=== PATIENT | male | born 1980 | race Caucasian/White ===

== ENCOUNTER 2023-09-04 19:16 | Emergency (ER) | payer BC, SELFPAY ==
[2023-09-04 19:23] VITALS: BP 131/89; PULSE 86; RESP 16; TEMP 36.5; O2SAT 98
[2023-09-04 20:13] LABS: Appearance Urine Clear (Clear); Bilirubin Urine Negative (Negative); Blood Urine Negative (Negative); Color Urine Yellow (Yellow); Glucose Urine Negative (Negative); Ketones Urine Negative (Negative); Leukocyte Esterase Urine Negative (Negative); Nitrite Urine Positive (Negative); Protein Urine Negative (Negative); Specific Gravity Urine 1.025 (1.000-1.030)
[2023-09-04 20:26] LABS: Bacteria Urine Few
--- NOTE | 2023-09-04 20:36 | CRLHL7_ITS ---
For Patients: As a result of the Century Cures Act, medical imaging exams and procedure reports are released immediately into your electronic medical record. You may view this report before your referring provider. If you have questions, please contact your health care provider. INDICATION: Flank pain. TECHNIQUE: Multiplanar CT examination of the abdomen and pelvis was performed without the use of intravenous contrast, stone pagan protocol. COMPARISON: None. FINDINGS: Lower Chest: Linear bandlike opacifications of the lung bases likely due to subsegmental atelectasis and/or scarring. No focal consolidation. Normal heart size. No pleural effusions or pneumothorax. Liver: Normal. Gallbladder: Normal. Biliary: No biliary ductal dilitation. Pancreas: Normal. Spleen: Normal. Adrenal Glands: Normal. Kidneys: Limited evaluation of the kidneys without the use of intravenous contrast. No obstructive urinary calculus. No hydronephrosis. No suspicious renal masses. Ureters: Normal. No hydroureter. Urinary Bladder: Normal. Bowel: No obstruction or bowel wall thickening. The appendix is normal. Pelvic organs: Enlarged prostate. Peritoneum: No ascites or pneumoperitoneum. Vessels: Normal. Lymph Nodes: No lymphadenopathy. Abdominal Wall/Soft Tissues: Unremarkable. Bones: Status post posterior fusion and decompressive laminectomies of L4-S1. Intervertebral disc spacer at L4-5. No acute osseous abnormalities. IMPRESSION: Limited evaluation of the kidneys without the use of intravenous contrast. 1. No obstructive calculus or hydronephrosis. The etiology of the patient`s flank pain is not elucidated on this examination. Please note that all CT scans at this facility use dose modulation, iterative reconstruction, and/or weight-based dosing when appropriate to reduce radiation dose to as low as reasonably achievable. Dictated by Yovany Vidal MD @ 09/04/2023 9:17:40 PM (Electronically Signed)
--- NOTE | 2023-09-04 20:48 | ED.GENADULT ---
HPI - General Adult General Date Seen: 09/04/23 Chief complaint: Flank Pain Stated complaint: Possible kidney stone-R Time Seen by Provider: 09/04/23 20:34 History of Present Illness HPI narrative: This is a very pleasant 43-year-old gentleman presenting to the ER [facility] with his for evaluation of acute onset right flank pain that began this evening. He has a past medical history notable for a kidney stone that passed spontaneously about 20 years ago. Also history of migraine headaches, some chronic low back pain, previous back surgery, degenerative disc disease. He had his live in [place]. They have traveled here to [place] for work. He was working in [place] today [place]. They had. For dinner in [facility] when he had abrupt onset of right flank pain. He did note a little bit of burning with urination earlier this evening but he thought that was probably just because he was dehydrated and had not had anything to drink all day long. No other recent dysuria, hematuria, urgency, frequency, or other urinary symptoms. Initially he had his thought he might have just pulled a muscle from working hard today in his back. However the pain became quite intense and made him double over his table and made him diaphoretic and sweaty. The pain has gotten better now and is now at a tolerable level but is still in his right flank. It does not radiate around to the right upper quadrant, right lower quadrant or down to his groin. The pain does not radiate to the midline of his back. No leg symptoms. No fevers or chills. He was nauseous during the severe pain but no vomiting. Related Data Home Medications Medication Instructions Recorded Confirmed No Known Home Medications 09/04/23 09/04/23 Allergies Allergy/AdvReac Type Severity Reaction Status Date / Time codeine Allergy Severe Rash Verified 09/04/23 19:29 Sulfa (Sulfonamide Allergy Intermediate Rash Verified 09/04/23 19:29 Antibiotics) [facility] Social History Smoking Status: Current every day smoker What tobacco products do you use: cigarettes How often do you have a drink containing alcohol: monthly or less How often do you have six or more drinks on one occasion: Never AUDIT-C Alcohol total score: 1 Non-prescribed substance use: denies use Exam Narrative: Exam Narrative: Constitutional: Appears well-developed and well-nourished. Alert. Conversant. Non toxic. HENT: Head: Atraumatic. Nose: Nose normal. Mouth/Throat: Oral mucosa is clear and moist. no trismus. Pharynx normal. Tonsils symmetric. No tonsillar enlargement, erythema, or exudate. Eyes: Conjunctivae normal. EOM normal. Pupils equal, round, and reactive to light. No scleral icterus. Neck: Normal range of motion. Neck supple. No tracheal deviation present. Cardiovascular: Normal rate, regular rhythm. No gallop. No friction rub. No murmur heard. Symmetric radial artery pulses Pulmonary/Chest: Effort normal. No stridor. No respiratory distress. No wheezes. No rales. No rhonchi . No tenderness. Abdominal: Soft. Bowel sounds normal. No distension. No mass. Right CVA tenderness. No RUQ, LUQ tenderness. No rebound. No guarding. Musculoskeletal: Healed midline lumbar incision. No midline tenderness or step-off. Right CVA tenderness. RUE: Normal range of motion. No tenderness. No deformity LUE: Normal range of motion. No tenderness. No deformity RLE: Normal range of motion. No edema. No tenderness. No deformity LLE: Normal range of motion. No edema. No tenderness. No deformity Neurological: Alert and oriented to person, place, and time. Normal strength. CN II-VII intact. No sensory deficit. GCS eye subscore is 4. GCS verbal subscore is 5. GCS motor subscore is 6. Normal coordination Skin: Skin is warm and dry. No rash noted. No pallor. Normal capillary refill. Psychiatric: Normal mood. Normal affect. Const: Vital Signs, click to edit/add: Vital Signs - 24 hr 09/04/23 19:23 09/04/23 22:00 Temperature 97.7 F Pulse Rate [Left P ulse Oximeter] 86 88 Respiratory Rate 16 Blood Pressure [Ri ght Upper Arm] 131/89 116/79 Pulse Oximetry 98 98 Oxygen Delivery Me thod Room Air Room Air Course Course ED Course: Recheck-sleeping in bed. Arouses when I shake his shoulder. Discussed test results. had gone to the bathroom. Recheck-still doing well. back. Discussed test results with the patient and his . Vital Signs Vital signs: Initial Vital Signs Temperature 97.7 F 09/04/23 19:23 Temperature Source Temporal Artery Scan 09/04/23 19:23 Pulse Rate 86 09/04/23 19:23 Pulse Rhythm Regular 09/04/23 19:23 Respiratory Rate 16 09/04/23 19:23 Blood Pressure 131/89 09/04/23 19:23 Blood Pressure Mean 103 09/04/23 19:23 Blood Pressure Position Sitting 09/04/23 19:23 Pulse Oximetry 98 09/04/23 19:23 Oxygen Delivery Method Room Air 09/04/23 19:23 Vital Signs Temperature 97.7 F 09/04/23 19:23 Pulse Rate 86 09/04/23 19:23 Respiratory Rate 16 09/04/23 19:23 Blood Pressure 131/89 09/04/23 19:23 Pulse Oximetry 98 09/04/23 19:23 Oxygen Delivery Method Room Air 09/04/23 19:23 Temperature 97.7 F 09/04/23 19:23 Pulse Rate 88 09/04/23 22:00 Respiratory Rate 16 09/04/23 19:23 Blood Pressure 116/79 09/04/23 22:00 Pulse Oximetry 98 09/04/23 22:00 Oxygen Delivery Method Room Air 09/04/23 22:00 Medications Administered Medications: Discontinued Medications Generic Name Dose Route Start Last Admin Trade Name rPadipq PRN Reason Stop Dose Admin Ondansetron HCl 4 mg 09/04/23 21:10 09/04/23 21:33 Ondansetron 2 Mg/Ml Inj IVP 09/04/23 21:11 4 mg ONCE ONE Administration Medical Decision Making MDM Narrative Medical decision making narrative: This is a 43-year-old male with a history of migraine headaches, and a distant history of 1 previous kidney stone presenting to the ER today with abrupt onset of severe right flank pain that doubled him over while he was at dinner this evening, prompting his visit here to the ER. He is traveling here to [place] for work and is currently in the process of traveling home to [place] with his . Differential 1st right flank pain included kidney stone, pyelonephritis, liver disease, gallbladder, unusual appendicitis, musculoskeletal pain, shingles, retroperitoneal hematoma, AAA, among others. Initial concern was for possible kidney stone. Urinalysis did come back with scant hematuria. Also positive nitrite but no pyuria. Stone protocol CT was obtained and is fortunately negative for any hydronephrosis, obstructing stone, or other abnormality. Laboratory workup is reassuring. Normal white blood cell count, hemoglobin, platelet count. Normal electrolytes, kidney function. Lactic acid normal. LFTs and lipase are normal. Patient sprain head largely resolved before he came to the ER and remain well controlled. He was able to fall asleep. He did not receive any pain meds while here in the ER. He does have some mild ongoing flank pain. At this point, with essentially resolved pain, I think it is reasonable to monitor the patient in outpatient setting. He is actually planning to travel back toward [place]. Therefore will provide him with copies of his labs and CT so that if he has recurrent pain in knees re-evaluation he will be able to bring his workup results with him. With the positive nitrite, although I think infection is unlikely, we will cover him with a course of cephalexin for possible UTI. With the hematuria, consider possible non radiopaque stone or perhaps a small stone not seen on her CT scan. At this point with resolved pain, normal kidney function and no hydronephrosis I do not think he would require hospitalization for emergent stenting. Will follow-up with his primary care provider within 1-2 weeks after he gets home to have a repeat urinalysis to make sure the hematuria resolves and nitrite is gone. Lab Data Labs: Lab Results 09/04/23 09/04/23 Range/Units 20:05 20:40 WBC 8.79 (4.50-11.00) K/uL RBC 4.90 (4.30-5.90) m/uL Hgb 15.1 (13.5-17.5) gm/dL Hct 45.7 (37.0-53.0) % MCV 93 (80-100) fL MCH 31 (26-34) pg MCHC 33 (32-36) gm/dL RDW Coeff of Brayan 12.1 (11.5-15.5) % Plt Count 227 (140-440) K/uL Neut % (Auto) 60.9 (42.0-72.0) % Lymph % (Auto) 21.2 (20-44) % Hettinger % (Auto) 14.4 H (0.0-11.0) % Eos % (Auto) 2.8 (0.0-7.0) % Baso % (Auto) 0.6 (0.0-3.0) % Neut # (Auto) 5.35 (1.7-7.0) K/uL Lymph # (Auto) 1.86 (0.90-2.90) K/uL Hettinger # (Auto) 1.30 H (0.00-0.90) K/UL Eos # (Auto) 0.25 (0.00-0.50) K/uL Baso # (Auto) 0.05 (0.00-0.30) K/uL Abs Immat Gran (auto) 0.01 (0.00-0.30) K/uL Imm/Tot Granulo (auto) 0.1 % Sodium 139 (135-149) mmol/L Potassium 3.9 (3.6-5.1) mmol/L Chloride 104 (96-114) mmol/L Carbon Dioxide 28 (20-32) mmol/L Anion Gap 7 (7-15) mEq/L BUN 17 (5-24) mg/dL Creatinine 1.2 (0.5-1.5) mg/dL Estimated GFR 78 ml/min Glucose 113 (60-115) mg/dL Lactate 1.2 (0.5-1.9) mmol/L Calcium 9.4 (8.4-10.6) mg/dL Total Bilirubin 0.7 (0.1-1.5) mg/dL AST 32 (12-35) U/L ALT 36 (4-50) U/L Alkaline Phosphatase 88 (40-150) U/L Total Protein 7.4 (6.0-8.3) g/dL Albumin 4.4 (3.3-5.0) g/dL Lipase 59 (23-300) U/L Urine Color Yellow (Yellow) Urine Appearance Clear (Clear) Urine pH 7.0 (5.0-8.5) Ur Specific Clay 1.025 (1.000-1.030) Urine Protein Negative (Negative) Urine Glucose (UA) Negative (Negative) Urine Ketones Negative (Negative) Urine Blood Negative (Negative) Urine Nitrite Positive A (Negative) Urine Bilirubin Negative (Negative) Urine Urobilinogen 1.0 (0.2-1.0) Ur Leukocyte Esterase Negative (Negative) Urine RBC 2-5 A (0-2) Urine WBC 2-5 (0-5) Ur Squamous Epith Cells None (None-Few) Urine Bacteria Few A (None) Imaging Data CT scan - abdomen: Attestation: I have reviewed the pertinent imaging results. Radiologist's impression: IMPRESSION: Limited evaluation of the kidneys without the use of intravenous contrast. 1. No obstructive calculus or hydronephrosis. The etiology of the patient`s flank pain is not elucidated on this examination. Discharge Plan Discharge Clinical Impression: Acute right flank pain, Hematuria, Abnormal urinalysis Patient Disposition: Home, Self-Care Condition: Stable Instructions: Flank Pain (ED) Additional Instructions: As we discussed, please recheck with your nearest ER if you have any worsening pain, fever, vomiting, urinary problems, weakness, or any concerns. Your urine sample shows a chemical called nitrate which is abnormal. This could be a sign of an infection. However the other portions of your urine sample do not show any sign of infection. Will treat her with a course of antibiotics in case there is an infection in your bladder or kidney. Please recheck with your regular doctor in 1-2 weeks when you get home to repeat a urine sample to make sure all the blood , and the nitrite, is gone from your urine. Prescriptions: No Action No Known Home Medications Follow Up/Referrals: Provider,Not a Local [Primary Care Provider] - Stand Alone Forms: [employer] Info Instructions
[2023-09-04 20:50] LABS: Lactate* 1.2 mmol/L (0.5-1.9)
[2023-09-04 21:15] LABS: Basophils Absolute Auto 0.05 K/uL (0.00-0.30); Basophils Percent Auto 0.6 % (0.0-3.0); Eosinophils Absolute Auto 0.25 K/uL (0.00-0.50); Eosinophils Percent Auto 2.8 % (0.0-7.0); Hematocrit 45.7 % (37.0-53.0); Hemoglobin* 15.1 gm/dL (13.5-17.5); Immature Granulocytes Abs Auto 0.01 K/uL (0.00-0.30); Immature Granulocytes Pct Auto 0.1 %; Lymphocytes Absolute Auto 1.86 K/uL (0.90-2.90); Lymphocytes Percent Auto 21.2 % (20-44); Mean Corpuscular HGB Conc 33 gm/dL (32-36); Mean Corpuscular Hemoglobin 31 pg (26-34); Mean Corpuscular Volume 93 fL (80-100); Monocytes Percent Auto 14.4 % (0.0-11.0); Neutrophils Absolute Auto 5.35 K/uL (1.7-7.0); Neutrophils Percent Auto 60.9 % (42.0-72.0); Platelet Count* 227 K/uL (140-440); RDW Coefficient of Variation % 12.1 % (11.5-15.5); White Blood Count* 8.79 K/uL (4.50-11.00)
[2023-09-04 21:17] LABS: Albumin* 4.4 g/dL (3.3-5.0); Chloride* 104 mmol/L (96-114); Potassium* 3.9 mmol/L (3.6-5.1); Sodium* 139 mmol/L (135-149)
[2023-09-04 21:19] LABS: Anion Gap 7 mEq/L (7-15); Bilirubin Total* 0.7 mg/dL (0.1-1.5); Carbon Dioxide* 28 mmol/L (20-32); Creatinine* 1.2 mg/dL (0.5-1.5); Estimated Glomerular Filt Rate 78 ml/min
[2023-09-04 21:20] LABS: Alanine Aminotransferase* 36 U/L (4-50); Alkaline Phosphatase* 88 U/L (40-150); Aspartate Amino Transferase* 32 U/L (12-35); Blood Urea Nitrogen* 17 mg/dL (5-24); Calcium* 9.4 mg/dL (8.4-10.6); Glucose* 113 mg/dL (60-115); Lipase* 59 U/L (23-300); Total Protein* 7.4 g/dL (6.0-8.3)
[2023-09-04 21:21] LABS: Slide Review Reflex No
[2023-09-04] MEDS: ONDANSETRON 2 MG/ML inj 4 MG IVP (21:33)
[2023-09-04 22:00] VITALS: BP 116/79; PULSE 88; O2SAT 98
== END 2023-09-04 22:51 | disposition home or self-care (01) ==
PROVIDERS: Emergency Provider Emergency Medicine
DX: R10.9 Unspecified abdominal pain (principal); R31.9 Hematuria, unspecified; R82.90 Unspecified abnormal findings in urine
CPT/HCPCS: 36415; 74176; 80053; 81001; 83605; 83690; 85025; 87086; 87186; 96374; 99283; J2405